=== PATIENT | male | born 1985 | race Hispanic/Latino ===

== ENCOUNTER 2021-06-12 16:26 | Emergency (ER) | payer SELFPAY ==
[2021-06-12] MEDS ORDERED: SODIUM CHLORIDE 0.9% 1000 ML 1,000 ML IV ONE (20:13)
[2021-06-12] MEDS ORDERED: METOCLOPRAMIDE 10 MG/2 ML INJ IV ONE (20:13)
[2021-06-12] MEDS ORDERED: MORPHINE 4 MG/1 ML INJ IV ONE (20:13)
[2021-06-12] MEDS ORDERED: PANTOPRAZOLE 40 MG INJ IV ONE (20:14)
--- NOTE | 2021-06-12 20:15 | Emergency Department Report ---
ED General Adult HPI - General Chief complaint: Nausea/Vomiting/Diarrhea Stated complaint: Abdominal pain, headache, nausea and vomiting Time Seen by Provider: 06/12/21 19:37 Source: patient, RN notes reviewed Mode of arrival: Ambulatory Limitations: No Limitations - History of Present Illness Initial comments: The patient was evaluated in the emergency department for symptoms described in the history of present illness. He/she was evaluated in the context of the global COVID-19 pandemic, which necessitated consideration that the patient might be at risk for infection with the virus that causes COVID-19. Institutional protocols and algorithms that pertain to the evaluation of patients at risk for COVID-19 are in a state of rapid change based on information released by regulatory bodies including the CDC and federal and state organizations. These policies and algorithms were followed during the patient's care in the emergency department. Please note that these policies, procedures and recommendations changed on a rapid basis. The patient is a 36-year-old gentleman with a reported history of hepatitis C, who presents to the ER today with a complaint of right flank and right lower quadrant abdominal pain, nausea, vomiting, reddish emesis, and headache. He reports no irritative or obstructive urinary symptoms or testicular pain. The patient works in the [employer], but reports that none of his coworkers have similar symptoms, and he reports no motorized vehicles running while he developed his symptoms. The headache is global and left-sided. The headache is not sudden or thunderclap in nature. The headache is not maximal in intensity. He also describes bloodshot eyes, but does not have loss of vision. He denies ocular pain. He felt improved in the emergency room with supportive care and pain medication -: Sudden Location: head, abdomen Consistency: constant Improves with: medication Worsens with: movement - Related Data Previous Rx's Medication Instructions Recorded Last Taken Type Acetaminophen [Non-Aspirin Extra 500 mg PO Q6HR PRN #30 tablet 06/13/21 Unknown Rx Strength] Metoclopramide [Reglan] 10 mg PO QID PRN #30 tablet 06/13/21 Unknown Rx Morphine Sulfate [Morphine Sulfate 7.5 mg PO Q6HR PRN #10 tablet 06/13/21 Unknown Rx IR] levoFLOXacin [Levaquin] 750 mg PO QDAY #10 tablet 06/13/21 Unknown Rx Allergies Allergy/AdvReac Type Severity Reaction Status Date / Time No Known Allergies Allergy Verified 06/12/21 18:19 ED Review of Systems ROS: Stated complaint: VOMITING BLOOD/RT EYE PRESSURE Other details as noted in HPI Constitutional: malaise. denies: fever Eyes: denies: eye discharge ENT: denies: epistaxis Respiratory: denies: cough Cardiovascular: denies: chest pain Gastrointestinal: abdominal pain, nausea, vomiting Genitourinary: denies: dysuria, testicular pain Neurological: headache, weakness ED Past Medical Hx - Past Medical History Previous Medical History?: No - Surgical History Past Surgical History?: No - Medications Home Medications: Home Medications Medication Instructions Recorded Confirmed Last Taken Type Acetaminophen [Non-Aspirin Extra 500 mg PO Q6HR PRN #30 tablet 06/13/21 Unknown Rx Strength] Metoclopramide [Reglan] 10 mg PO QID PRN #30 tablet 06/13/21 Unknown Rx Morphine Sulfate [Morphine Sulfate 7.5 mg PO Q6HR PRN #10 tablet 06/13/21 Unknown Rx IR] levoFLOXacin [Levaquin] 750 mg PO QDAY #10 tablet 06/13/21 Unknown Rx ED Physical Exam - General Limitations: No Limitations General appearance: alert, anxious, in distress - Head Head exam: Present: atraumatic, normocephalic - Eye Eye exam: Present: normal appearance, EOMI, conjunctival injection. Absent: nystagmus - ENT ENT exam: Present: normal exam, normal orophraynx, mucous membranes moist, normal external ear exam - Neck Neck exam: Present: normal inspection, full ROM. Absent: tenderness, meningismus - Respiratory Respiratory exam: Present: normal lung sounds bilaterally. Absent: respiratory distress, wheezes, rales, rhonchi, stridor, decreased breath sounds - Cardiovascular Cardiovascular Exam: Present: regular rate, normal rhythm, normal heart sounds. Absent: bradycardia, tachycardia, irregular rhythm, systolic murmur, diastolic murmur, rubs, gallop - GI/Abdominal GI/Abdominal exam: Present: soft, tenderness, other (Right lower quadrant and right flank tenderness to deep palpation). Absent: distended, guarding, rebound, rigid, normal bowel sounds, pulsatile mass - Rectal Rectal exam: Present: normal inspection, normal rectal tone, heme (-) stool, other (Chaperoned by Marzena Ley). Absent: black stool, bloody stool - exam: Present: normal inspection, other (There is normal testicular lie. There is normal cremasteric reflex. There is no testicular tenderness. There is no testicular swelling). Absent: testicular tenderness External exam: Present: normal external exam, other (Chaperoned by Marzena Elder) - Extremities Exam Extremities exam: Present: normal inspection, full ROM, other (2+ pulses noted in the bilateral upper and lower extremities. There is no palpable cord. negative Homans sign. Muscular compartments are soft. The pelvis is stable.). Absent: pedal edema, calf tenderness - Back Exam Back exam: Present: normal inspection. Absent: tenderness, CVA tenderness (R), CVA tenderness (L), paraspinal tenderness, vertebral tenderness - Neurological Exam Neurological exam: Present: alert, oriented X3, normal gait, other (No facial droop. Tongue midline. Extraocular movements intact bilaterally. Facial sensation intact to light touch in V1, V2, V3 distribution bilaterally. 5 and a 5 strength in 4 extremities. Sensation intact to light touch in 4 extremities.). Absent: motor sensory deficit - Psychiatric Psychiatric exam: Present: normal affect, normal mood - Skin Skin exam: Present: warm, dry, intact, normal color. Absent: rash ED Course Vital Signs 06/12/21 06/12/21 18:23 21:04 Temperature 98 F Pulse Rate 97 H Respiratory 16 16 Rate Blood Pressure 145/88 [Left] O2 Sat by Pulse 100 Oximetry ED Medical Decision Making - Lab Data Result diagrams: 06/12/21 20:19 06/12/21 20:19 Vital Signs 06/12/21 06/12/21 18:23 21:04 Temperature 98 F Pulse Rate 97 H Respiratory 16 16 Rate Blood Pressure 145/88 [Left] O2 Sat by Pulse 100 Oximetry Lab Results 06/12/21 06/12/21 06/12/21 Range/Units 20:19 20:19 20:19 WBC 20.3 H (4.5-11.0) K/mm3 RBC 5.28 H (3.65-5.03) M/mm3 Hgb 15.7 H (11.8-15.2) gm/dl Hct 48.4 H (35.5-45.6) % MCV 92 (84-94) fl MCH 30 (28-32) pg MCHC 32 (32-34) % RDW 16.2 H (13.2-15.2) % Plt Count 219 (140-440) K/mm3 PT 12.5 (12.2-14.9) Sec. INR 0.84 L (0.87-1.13) Sodium (137-145) mmol/L Potassium (3.6-5.0) mmol/L Chloride (98-107) mmol/L Carbon Dioxide (22-30) mmol/L Anion Gap mmol/L BUN (9-20) mg/dL Creatinine (0.8-1.3) mg/dL Estimated GFR ml/min BUN/Creatinine Ratio % Glucose (75-100) mg/dL Calcium (8.4-10.2) mg/dL Magnesium (1.7-2.3) mg/dL Total Bilirubin 0.60 (0.1-1.2) mg/dL Direct Bilirubin 0.2 (0-0.2) mg/dL Indirect Bilirubin 0.4 mg/dL AST 38 (5-40) units/L ALT 50 (7-56) units/L Alkaline Phosphatase 103 (35-129) units/L Total Creatine Kinase (55-170) units/L Total Protein 8.2 (6.3-8.2) g/dL Albumin 4.7 (3.9-5) g/dL Albumin/Globulin Ratio 1.3 % Lipase (13-60) units/L Urine Color (Yellow) Urine Turbidity (Clear) Urine pH (5.0-7.0) Ur Specific [place] (1.003-1.030) Urine Protein (Negative) mg/dL Urine Glucose (UA) (Negative) mg/dL Urine Ketones (Negative) mg/dL Urine Blood (Negative) Urine Nitrite (Negative) Urine Bilirubin (Negative) Urine Urobilinogen (<2.0) mg/dL Ur Leukocyte Esterase (Negative) Urine WBC (Auto) (0.0-6.0) /HPF Urine RBC (Auto) (0.0-6.0) /HPF U Epithel Cells (Auto) (0-13.0) /HPF Urine Mucus /HPF 06/12/21 06/12/21 06/12/21 Range/Units 20:19 20:19 Unknown WBC (4.5-11.0) K/mm3 RBC (3.65-5.03) M/mm3 Hgb (11.8-15.2) gm/dl Hct (35.5-45.6) % MCV (84-94) fl MCH (28-32) pg MCHC (32-34) % RDW (13.2-15.2) % Plt Count (140-440) K/mm3 PT (12.2-14.9) Sec. INR (0.87-1.13) Sodium 137 (137-145) mmol/L Potassium 4.4 (3.6-5.0) mmol/L Chloride 104.1 (98-107) mmol/L Carbon Dioxide 19 L (22-30) mmol/L Anion Gap 18 mmol/L BUN 17 (9-20) mg/dL Creatinine 0.9 (0.8-1.3) mg/dL Estimated GFR > 60 ml/min BUN/Creatinine Ratio 19 % Glucose 105 H (75-100) mg/dL Calcium 9.0 (8.4-10.2) mg/dL Magnesium 1.80 (1.7-2.3) mg/dL Total Bilirubin (0.1-1.2) mg/dL Direct Bilirubin (0-0.2) mg/dL Indirect Bilirubin mg/dL AST (5-40) units/L ALT (7-56) units/L Alkaline Phosphatase (35-129) units/L Total Creatine Kinase 68 (55-170) units/L Total Protein (6.3-8.2) g/dL Albumin (3.9-5) g/dL Albumin/Globulin Ratio % Lipase 17 (13-60) units/L Urine Color Yellow (Yellow) Urine Turbidity Clear (Clear) Urine pH 6.0 (5.0-7.0) Ur Specific [place] 1.017 (1.003-1.030) Urine Protein <15 mg/dl (Negative) mg/dL Urine Glucose (UA) Neg (Negative) mg/dL Urine Ketones 80 (Negative) mg/dL Urine Blood Neg (Negative) Urine Nitrite Neg (Negative) Urine Bilirubin Neg (Negative) Urine Urobilinogen < 2.0 (<2.0) mg/dL Ur Leukocyte Esterase Tr (Negative) Urine WBC (Auto) 21.0 H (0.0-6.0) /HPF Urine RBC (Auto) 2.0 (0.0-6.0) /HPF U Epithel Cells (Auto) 2.0 (0-13.0) /HPF Urine Mucus Few /HPF - EKG Data -: EKG Interpreted by Nv EKG shows normal: sinus rhythm Rate: tachycardia - EKG Data When compared to previous EKG there are: previous EKG unavailable 06/12/21 23:56 The EKG is interpreted at 21: 26 Sinus rhythm, tachycardia, rate 102 bpm. Rightward axis deviation. QTc 4 5 0 ms. Motion artifact. High left ventricular voltage. Abnormal EKG. Not a STEMI. No prior for comparison. - Radiology Data Radiology results: pending, report reviewed, image reviewed CT ABDOMEN AND PELVIS WITH CONTRAST INDICATION: Acute abdominal pain, nausea and vomit. TECHNIQUE: Axial CT images were obtained through the abdomen and pelvis after 100 cc Omni [address] scans at this location are pe rformed using CT dose reduction for ALARA by means of automated exposure control. COMPARISON: None available. FINDINGS: LOWER CHEST: No significant abnormality. LIVER: No significant abnormality. GALLBLADDER: No significant abnormality. BILE DUCTS: No significant abnormality. PANCREAS: No significant abnormality. SPLEEN: No significant abnormality. ADRENALS: No significant abnormality. RIGHT KIDNEY and URETER: 2 nonobstructing 5 mm right intrarenal stones. No ureteral stone or hydronephrosis LEFT KIDNEY and URETER: No significant abnormality. STOMACH and SMALL BOWEL: No significant abnormality. COLON: No significant abnormality. APPENDIX: No significant abnormality. PERITONEUM: No free fluid. No free air. No fluid collection. LYMPH NODES: No significant adenopathy. AORTA and ARTERIES: No significant abnormality. IVC and VEINS: No significant abnormality. URINARY BLADDER: No significant abnormality. REPRODUCTIVE ORGANS: No significant abnormality. ADDITIONAL FINDINGS: None. SKELETAL SYSTEM: No significant abnormality. IMPRESSION: 1. Right nephrolithiasis. 2. No ureteral stone or hydronephrosis 3. No acute inflammatory process or bowel obstruction Signer Name: Tobi Thrasher MD Signed: 06/12/2021 9:22 PM Workstation Name: [id number] CT BRAIN: 06/12/2021 INDICATION / CLINICAL INFORMATION: Acute headache, nausea and vomit. COMPARISON: None available. FINDINGS: BRAIN/INTRACRANIAL STRUCTURES: Unenhanced CT images of the brain demonstrate no evidence of acute abnormality. Ventricles and sulci are normal in size and shape. There is no evidence of hemorrhage or mass. There are no abnormal extra-axial fluid collections. EXTRACRANIAL STRUCTURES: Unremarkable. IMPRESSION: Negative unenhanced CT of the brain. All CT scans at this location are performed u sing dose reduction to ALARA by means of automated exposure control. Signer Name: Hieu Grullon MD Signed: 06/12/2021 9:03 PM Workstation Name: [id number] CHEST 1 VIEW 06/12/2021 8:23 PM INDICATION / CLINICAL INFORMATION: Hemoptysis. COMPARISON: None available. FINDINGS: SUPPORT DEVICES: None. HEART / MEDIASTINUM: No significant abnormality. LUNGS / PLEURA: No significant pulmonary or pleural abnormality. No pneumothorax. ADDITIONAL FINDINGS: No significant additional findings. IMPRESSION: 1. No acute findings. Signer Name: Tobi Thrasher MD Signed: 06/12/2021 7:39 PM Workstation Name: [id number] - Medical Decision Making Differential diagnosis, including but not limited to: Renal colic, pneumonia, hematemesis, upper GI bleed, appendicitis, migraine headache, tension headache, cluster headache Assessment and plan: 36-year-old gentleman with a primary complaint of abdominal pain, headache, nausea vomiting of reddish emesis. He has a GCS of 15. He is quite tender in his right flank and right lower quadrant. He has a normal exam, and no blood per rectum. Chest x-ray is unremarkable, noncontrast CT scan of the brain is negative for acute findings, urinalysis demonstrates pyuria without bacteriuria, and a CT scan of the abdomen pelvis demonstrates intrarenal stones. Uncertain if leukocytosis is a stress reaction, or secondary to early infectious process. However, the patient feels improved after initial supportive care, renal stones not in the collecting system, appendix is unremarkable, and visualized kidney parenchyma appears to be unremarkable. Patient will be treated empirically with antibiotics, ceftriaxone, and discharge d with levofloxacin. He will also be given prescriptions for pain medication, nausea medication. Return precautions are reviewed. All questions answered. Critical care attestation.: If time is entered above; I have spent that time in minutes in the direct care of this critically ill patient, excluding procedure time. ED Disposition Clinical Impression: Acute abdominal pain, Kidney stone on right side, Headache, Nausea and vo miting, Pyuria Disposition: HOME / SELF CARE / HOMELESS Is pt being admited?: No Does the pt Need Aspirin: No Condition: Good Additional Instructions: Do not take metformin medication for the next 2 days. Avoid consumption of alcohol, tobacco, smoke products, and minimize consumption of heavy and spicy foods, as well as Motrin, ibuprofen, Naprosyn, Aleve. Cultures were sent today, and results will be available in the next 3 to 5 days. Please have your primary care doctor contact the medical record department to obtain culture results. Please take the pain medication, nausea medication and antibiotics as directed. Please follow-up with a primary care doctor within the next 3 to 5 days. Please return to the emergency room right away with new pain, worsened pain, migration of pain, projectile vomiting, change in mental status, confusion, inability tolerate liquid feeds, new, worsened or different symptoms not present on the initial emergency room evaluation Referrals: [facility] [Provider Group] - 3-5 Days Forms: Work/School Release Form(ED)
--- NOTE | 2021-06-12 20:43 | XRay Report ---
CHEST 1 VIEW 06/12/2021 8:23 PM INDICATION / CLINICAL INFORMATION: Hemoptysis. COMPARISON: None available. FINDINGS: SUPPORT DEVICES: None. HEART / MEDIASTINUM: No significant abnormality. LUNGS / PLEURA: No significant pulmonary or pleural abnormality. No pneumothorax. ADDITIONAL FINDINGS: No significant additional findings. IMPRESSION: 1. No acute findings. Signer Name: Tobi Thrasher MD Signed: 06/12/2021 8:39 PM Workstation Name: [id number]
[2021-06-12 20:56] LABS: BUN/Creatinine Ratio 19; Blood Urea Nitrogen 17 mg/dL (9-20); Hemolysis Index 19
[2021-06-12 20:57] LABS: Hematocrit 48.4 % (35.5-45.6); Hemoglobin 15.7 gm/dl (11.8-15.2); Mean Corpuscular HGB Conc 32 % (32-34); Mean Corpuscular Volume 92 fl (84-94); Platelet Count 219 K/mm3 (140-440); Red Blood Count 5.28 M/mm3 (3.65-5.03); Red Cell Distribution Width 16.2 % (13.2-15.2)
[2021-06-12 20:59] LABS: Albumin 4.7 g/dL (3.9-5); Bilirubin,Direct 0.2 mg/dL (0-0.2)
[2021-06-12 21:12] LABS: INR 0.84 (0.87-1.13)
[2021-06-12 21:23] LABS: Bilirubin,Urine NEG (Negative); Blood,Urine NEG (Negative); Color,Urine Yellow (Yellow); Mucus,Urine FEW /HPF; Protein,Urine <15 mg/dL mg/dL (Negative); Urobilinogen,Urine < 2.0 mg/dL (<2.0)
--- NOTE | 2021-06-12 22:07 | Cat Scan Report ---
CT BRAIN: 06/12/2021 INDICATION / CLINICAL INFORMATION: Acute headache, nausea and vomit. COMPARISON: None available. FINDINGS: BRAIN/INTRACRANIAL STRUCTURES: Unenhanced CT images of the brain demonstrate no evidence of acute abn ormality. Ventricles and sulci are normal in size and shape. There is no evidence of hemorrhage or mass. There are no abnormal extra-axial fluid collections. EXTRACRANIAL STRUCTURES: Unremarkable. IMPRESSION: Negative unenhanced CT of the brain. All CT scans at this location are performed using dose reduction to ALARA by means of automated expos ure control. Signer Name: Hieu Grullon MD Signed: 06/12/2021 10:03 PM Workstation Name: [id number]
--- NOTE | 2021-06-12 22:27 | Cat Scan Report ---
CT ABDOMEN AND PELVIS WITH CONTRAST INDICATION: Acute abdominal pain, nausea and vomit. TECHNIQUE: Axial CT images were obtained through the abdomen and pelvis after 100 cc Omni [address] scans at this location are performed using CT dose reduction for ALARA by means of automated expos ure control. COMPARISON: None available. FINDINGS: LOWER CHEST: No significant abnormality. LIVER: No significant abnormality. GALLBLADDER: No significant abnormality. BILE DUCTS: No significant abnormality. PANCREAS: No significant abnormality. SPLEEN: No significant abnormality. ADRENALS: No significant abnormality. RIGHT KIDNEY and URETER: 2 nonobstructing 5 mm right intrarenal stones. No ureteral stone or hydronep hrosis LEFT KIDNEY and URETER: No significant abnormality. STOMACH and SMALL BOWEL: No significant abnormality. COLON: No significant abnormality. APPENDIX: No significant abnormality. PERITONEUM: No free fluid. No free air. No fluid collection. LYMPH NODES: No significant adenopathy. AORTA and ARTERIES: No significant abnormality. IVC and VEINS: No significant abnormality. URINARY BLADDER: No significant abnormality. REPRODUCTIVE ORGANS: No significant abnormality. ADDITIONAL FINDINGS: None. SKELETAL SYSTEM: No significant abnormality. IMPRESSION: 1. Right nephrolithiasis. 2. No ureteral stone or hydronephrosis 3. No acute inflammatory process or bowel obstruction Signer Name: Tobi Thrasher MD Signed: 06/12/2021 10:22 PM Workstation Name: [id number]
[2021-06-12] MEDS ORDERED: cefTRIAXone/NS 2 GM/100 ML 2 GM/100 ML BAG IV ONE (22:35)
[2021-06-12] MEDS ORDERED: HYDROmorphone 1 MG/1 ML INJ IV ONE (22:39)
[2021-06-12] MEDS ORDERED: SODIUM CHLORIDE 0.9% 1000 ML 2,000 ML IV ONE (22:39)
[2021-06-13 00:17] VITALS: BP 116/74
[2021-06-13 02:07] LABS: Anisocytosis 1+; Band Neutrophils # (Manual) 0.1 K/mm3; Basophils % (Manual) 0 % (0.0-1.8); Eosinophils % (Manual) 0 % (0.0-4.3); Platelet Estimate Consistent w Auto; Total Cells Counted 200
--- NOTE | 2021-06-14 09:51 | Electrocardiograph Report ---
[facility] Test Date: 2021-06-12 Test Time: 21:26:50 Pat Name: JOÃO ALVARENGA Department: Room: Gender: M Certified Ophthalmic Assistant: ADMINISTRATIVE ANALYST : 1985 Requested By: JOÃO CARRILLO Order Number: [id number] Reading MD: Balwinder Weldon Measurements Intervals [place] Rate: 102 P: 42 AK: 150 QRS: 89 QRSD: 90 T: -9 QT: 344 QTc: 450 Interpretive Statements Sinus tachycardia rightward axis T wave abnormality. consider inferior ischemia Electronically Signed On 06-14-2021 9:50:51 EST by Balwinder Weldon
== END 2021-06-13 00:16 | disposition home or self-care (01) ==
LOC: ED 16:26
DX: N20.0 Calculus of kidney (principal); R51.9 Headache, unspecified; R11.2 Nausea with vomiting, unspecified; R82.81 Pyuria; Z79.899 Other long term (current) drug therapy
CPT/HCPCS: 36415; 70450; 71045; 74177; 80048; 80076; 81001; 82550; 83690; 83735; 85007; 85025; 85610; 87086; 93005; 93010; 96361; 96374; 96375; 99284; C9113; J2270; J2765; J7030; Q9967; 99282; Q0162